=== PATIENT | female | born 1980 ===

== ENCOUNTER 2017-10-29 15:41 | Emergency (ER) | payer OTHER ==
[2017-10-29 15:41] VITALS: BMI 34.2
[2017-10-29 16:17] VITALS: RESP 18; TEMP 98.2; O2SAT 99
[2017-10-29] MEDS ORDERED: Bacitracin 500 Units/gm Oint Foilpak UD ONE (16:41)
[2017-10-29] MEDS ORDERED: Amoxicillin-Clav 875-125 mg Tab PO STA (16:44)
[2017-10-29] MEDS ORDERED: Tdap Vaccine 0.5 ml Vial (10-64 yrs) IM ONE ×2 (16:44→16:56)
--- NOTE | 2017-10-29 16:46 | C.PDOC ---
History Of Present Illness 37 year old female patient presents to the ER from a dog bite on right forearm. Patient states that as she was coming home, a pitbull from her building ran towards her and bit her. Patient reports that the pitbull chair says pitbull is UTD with shots, but she is not sure about her own immunization record. Time Seen by Provider: 10/29/17 16:28 Chief Complaint (Nursing): Bite Past Medical History Vital Signs: Last Vital Signs Temp 98.2 F 10/29/17 16:14 Pulse 80 10/29/17 16:14 Resp 18 10/29/17 16:14 BP 118/67 10/29/17 16:14 Pulse Ox 99 10/29/17 16:53 - Medical History PMH: Asthma Denies: Chronic Kidney Disease - Social History Hx Alcohol Use: No Hx Substance Use: No - Immunization History Hx Tetanus Toxoid Vaccination: No Hx Influenza Vaccination: No Hx Pneumococcal Vaccination: No ED Course And Treatment O2 Sat by Pulse Oximetry: 99 Disposition - Disposition Disposition Time: 16:44 Additional Instructions: Watch for signs of infection including redness, swelling or discharge. Wound check in 2 days. Prescriptions: Amoxicillin/Clavulanate [Augmentin 875 MG-125 MG] 1 tab PO BID #14 tab Instructions: Animal Bites (DC) Forms: [employer] ([place]ian)
--- NOTE | 2017-10-29 16:47 | C.PDOC ---
History Of Present Illness 37 year old female patient presents to the ER from a dog bite on right forearm just prior to arrival. Patient states that as she was coming home when the neighbor's pitbull bit her. The neighbor reports the dog is UTD with shots. PAttient denies SOB, fever, change in sensation, weakness to the arm or any other injury. Time Seen by Provider: 10/29/17 16:28 Chief Complaint (Nursing): Bite History Per: Patient History/Exam Limitations: no limitations Onset/Duration Of Symptoms: Hrs Current Symptoms Are (Timing): Still Present Location Of Injury: Right: Forearm Quality Of Symptoms: Painful, Swollen - Animal Bite Description Of The Animal: Neighbor's Pet Reports Animal's Immunization Status: UTD Past Medical History Reviewed: Historical Data, Nursing Documentation, Vital Signs Vital Signs: Last Vital Signs Temp 98.2 F 10/29/17 16:14 Pulse 83 10/29/17 17:03 Resp 18 10/29/17 17:03 BP 120/71 10/29/17 17:03 Pulse Ox 99 10/29/17 17:03 - Medical History PMH: Asthma Family History: States: No Known Family Hx - Social History Hx Alcohol Use: No Hx Substance Use: No - Immunization History Hx Tetanus Toxoid Vaccination: No Hx Influenza Vaccination: No Hx Pneumococcal Vaccination: No Review Of Systems Except As Marked, All Systems Reviewed And Found Negative. Constitutional: Negative for: Fever, Chills Respiratory: Negative for: Shortness of Breath Musculoskeletal: Positive for: Arm Pain (forearm pain and swelling) Physical Exam - Physical Exam Appears: Well, Non-toxic, No Acute Distress Skin: Warm, Dry Head: Atraumatic, Normacephalic Eye(s): bilateral: Normal Inspection, EOMI Nose: Normal Oral Mucosa: Moist Chest: Symmetrical Respiratory: No Decreased Breath Sounds, Other (speaking in full sentences) Extremity: Normal ROM, Capillary Refill (<2 sec), Swelling (right forearm ), Other ((+) three puncture wounds to the dorsal aspect of the right forearm) Pulses: Left Radial: Normal, Right Radial: Normal Neurological/Psych: Oriented x3, Normal Speech, Normal Motor (5/5 against resistance), Normal Sensation, No Other (focal deficits) Gait: Steady ED Course And Treatment O2 Sat by Pulse Oximetry: 99 (RA) Pulse Ox Interpretation: Normal Progress Note: Impression: 37 year old female patient injured forearm from a dog bite. Plan: -- Tetanus booster. -- Amoxicillin. -- Ibuprofen. . Discussed with pt wound care. Patient advise to look for swelling and discharge when home; keep injury dry; wound check in 2 days. Return to eR if symptoms persist or worsen. Laceration - Laceration Repair right forearm Wound Length (In cm): 0.5 x 2 Wound Cleansed With: Betadine, Sterile Saline Wound Examination: Irrigated With Saline, No FB With Wound Exploration, No Tendon Injury With Wound Exploration Wound Closure: Steri Strips Wound Complexity: Simple Disposition - Disposition Disposition: HOME/ ROUTINE Disposition Time: 17:00 Condition: STABLE Additional Instructions: Watch for signs of infection including redness, swelling or discharge. Wound check in 2 days. Prescriptions: Amoxicillin/Clavulanate [Augmentin 875 MG-125 MG] 1 tab PO BID #14 tab Instructions: Animal Bites (DC) Forms: [employer] (Trinidadian) - Clinical Impression Clinical Impression: Dog bite - PA / [employer] / Resident Statement / has reviewed & agrees with the documentation as recorded. - Scribe Statement The provider has reviewed the documentation as recorded by the Karen Kwok Do All medical record entries made by the Gladisibsubha were at my direction and personally dictated by me. I have reviewed the chart and agree that the record accurately reflects my personal performance of the history, physical exam, medical decision making, and the department course for this patient. I have also personally directed, reviewed, and agree with the discharge instructions and disposition.
[2017-10-29] MEDS ORDERED: Amoxicillin-Clav 875-125 mg Tab PO ONE (16:56)
[2017-10-29 17:05] VITALS: BP 120/71; PULSE 83
== END 2017-10-29 17:07 | disposition home or self-care (01) ==
LOC: C.ER 15:41
DX: S51.851A Open bite of right forearm, initial encounter (principal); W54.0XXA Bitten by dog, initial encounter; Z23 Encounter for immunization